=== PATIENT | male | born 1955 | race Caucasian/White ===

== ENCOUNTER 2016-05-23 17:27 | Day surgery (SDC) | payer OTHER ==
[~2016-05-23] VITALS: Ht 182.9 cm; Wt 85.0 kg
[~2016-05-23 17:27] MED LIST: ONDANSETRON HCL 4 MG/2 ML VIAL IV PUSH ONE; PROPOFOL 200 MG/20 ML AMP IV ONE
[2016-05-23 17:29] VITALS: BP 159/97; PULSE 102; RESP 15; TEMP 97.9; O2SAT 98
--- NOTE | 2016-05-23 19:16 | PD ---
HPI . cut fingers at about 2pm today Chief Complaint: Injury Time Seen by Provider: 19:16 Travel History International Travel<30 days: No Contact w/Intl Traveler<30days: No Traveled to known affect area: No History of Present Illness HPI 61-year-old male with hypertension, borderline diabetes, COPD (emphysema) here after sustaining an injury to his left hand middle and index finger. Patient was using a table saw and trying to turn it off when he accidentally touched the blade. At that point he amputated the distal tip of his index finger and cut into his middle finger, where there is a slight flap remaining. Patient went to [facility] in [place] was seen and told that he would need to come here to see a hand surgeon. He is up-to-date on his tetanus vaccine. He was not given any IV antibiotics in the emergency department, but is allergic to penicillin. Currently patient states that his fingers are still numb from the digital nerve block, however he does report pain 7 out of 10. He does have allergy to codeine, but tells me that he tolerates morphine well without any issues. He is accompanied by his . At the time of examination patient denies any other symptoms such as chest pain, shortness breath, abdominal pain, nausea, vomiting, weakness or fatigue. PFSH Past Medical History COPD: Yes Hypertension: Yes Social History Tobacco Use: Yes Allergies-Medications (Allergen,Severity, Reaction): Coded Allergies: Penicillin (Verified Allergy, Severe, Anaphylaxis, 05/23/16) Codeine (Verified Adverse Reaction, Severe, HEADACHE, 05/23/16) Review of Systems General / Constitutional: No: Fever Eyes: No: Visual changes HENT: No: Headaches Cardiovascular: No: Chest Pain or Discomfort Respiratory: No: Shortness of Breath Gastrointestinal: No: Abdominal Pain Genitourinary: No: Dysuria Musculoskeletal: No: Pain Skin: Positive Other (left index finger distal amputation and laceration), No Rash Neurologic: No: Weakness Psychiatric: No: Depression Endocrine: No: Polydipsia Hematologic/Lymphatic: No: Easy Bruising Physical Exam Narrative GENERAL: AAO x 3, no acute distress, Well-nourished, well-developed patient. SKIN: Warm and dry. No visible rashes or bruising. left index finger distal amputation, bone visible. middle finger, deep laceration with injury to nailbed. HEAD: Normocephalic and atraumatic. EYES: No scleral icterus. No injection or drainage. EOM intact, PERRLA ENT: No nasal drainage noted. Mucous membranes pink. Airway patent. NECK: Supple, trachea midline. No JVD. CARDIOVASCULAR: Regular rate and rhythm without murmurs, gallops, or rubs. RESPIRATORY: Breath sounds equal bilaterally. No accessory muscle use. No rhonchi or rales. GASTROINTESTINAL: Abdomen soft, non-tender, nondistended. EXTREMITIES: No cyanosis or edema of other extremities. Left hand without edema. + left distal index finger amputation, + left middle laceration extending through nailbed BACK: Nontender without obvious deformity. No CVA tenderness. PSYCH: AAO x 3, normal affect. Data Data Last Documented VS Vital Signs Date Time Temp Pulse Resp B/P Pulse Ox O2 Delivery O2 Flow Rate FiO2 05/23/16 21:20 92 15 140/78 92 05/23/16 19:17 Room Air 05/23/16 17:29 97.9 Orders Clindamycin Inj (Cleocin Inj) (05/23/16 19:30) Morphine Inj (Morphine Inj) (05/23/16 19:45) Ondansetron Inj (Zofran Inj) (05/23/16 19:45) Hand, Complete ([id number]) (05/23/16 19:51) Diet Npo (05/24/16 Breakfast) Complete Blood Count With Diff (05/23/16 20:43) Urinalysis - C+S If Indicated (05/23/16 20:43) Basic Metabolic Panel (Bmp) (05/23/16 20:43) Chest, Single Ap (05/23/16 ) Electrocardiogram (05/23/16 ) Coag Profile (05/23/16 20:43) Lidocaine 2% Inj (Xylocaine 2% Inj) (05/23/16 22:08) Labs Laboratory Tests Test 05/23/16 05/23/16 21:00 21:20 White Blood Count 7.9 TH/MM3 Red Blood Count 4.66 MIL/MM3 Hemoglobin 14.0 GM/DL Hematocrit 41.0 % Mean Corpuscular Volume 87.9 FL Mean Corpuscular Hemoglobin 30.2 PG Mean Corpuscular Hemoglobin 34.3 % Concent Red Cell Distribution Width 14.4 % Platelet Count 285 TH/MM3 Mean Platelet Volume 7.9 FL Neutrophils (%) (Auto) 67.7 % Lymphocytes (%) (Auto) 23.9 % Monocytes (%) (Auto) 6.6 % Eosinophils (%) (Auto) 1.2 % Basophils (%) (Auto) 0.6 % Neutrophils # (Auto) 5.3 TH/MM3 Lymphocytes # (Auto) 1.9 TH/MM3 Monocytes # (Auto) 0.5 TH/MM3 Eosinophils # (Auto) 0.1 TH/MM3 Basophils # (Auto) 0.1 TH/MM3 CBC Comment DIFF FINAL Differential Comment Prothrombin Time 10.8 SEC Prothromb Time International 1.0 RATIO Ratio Activated Partial 29.6 SEC Thromboplast Time Sodium Level 138 MEQ/L Potassium Level 4.3 MEQ/L Chloride Level 100 MEQ/L Carbon Dioxide Level 31.4 MEQ/L Anion Gap 7 MEQ/L Blood Urea Nitrogen 17 MG/DL Creatinine 0.66 MG/DL Estimat Glomerular Filtration 122 ML/MIN Rate Random Glucose 98 MG/DL Calcium Level 9.2 MG/DL Urine Color YELLOW Urine Turbidity CLEAR Urine pH 7.0 Urine Specific [place] 1.021 Urine Protein NEG mg/dL Urine Glucose (UA) NEG mg/dL Urine Ketones NEG mg/dL Urine Occult Blood NEG Urine Nitrite NEG Urine Bilirubin NEG Urine Urobilinogen LESS THAN 2.0 MG/DL Urine Leukocyte Esterase NEG Urine WBC LESS THAN 1 /hpf Urine Mucus FEW /lpf Microscopic Urinalysis Comment CULT NOT INDICATED MDM Medical Decision Making Medical Screen Exam Complete: Yes Emergency Medical Condition: Yes Medical Record Reviewed: Yes Differential Diagnosis finger amputation, finger fracture, Narrative Course 61-year-old male with hypertension, borderline diabetes, COPD (emphysema) here after sustaining an injury to his left hand middle and index finger. Patient was using a table saw and trying to turn it off when he accidentally touched the blade. At that point he amputated the distal tip of his index finger and cut into his middle finger, where there is a slight flap remaining. Patient went to [facility] in [place] was seen and told that he would need to come here to see a hand surgeon. He is up-to-date on his tetanus vaccine. He was not given any IV antibiotics in the emergency department, but is allergic to penicillin. Currently patient states that his fingers are still numb from the digital nerve block, however he does report pain 7 out of 10. He does have allergy to codeine, but tells me that he tolerates morphine well without any issues. He is accompanied by his . At the time of examination patient denies any other symptoms such as chest pain, shortness breath, abdominal pain, nausea, vomiting, weakness or fatigue. 1957: discussed with Dr. Cerda, she will try to come down to see the patient. Xrays ordered. 2039: spoke with Dr. Cerda there is another surgeon in the OR and she will try to get to him tonight, however, if that surgery is held over too long, she will perform early in the morning. However, if she is able to operate tonight, she will discharge him home. She recommended NPO for anticipation of surgery. Pre- op workup in progress. Patient taken to the OR from ED. He was transferred to Dr. Cerda's care. Patient verbalized understanding of instructions, questions were answered, and thanked me for their care. Diagnosis Primary Impression: Finger injury Qualified Code: S69.92XA - Finger injury, left, initial encounter Admitting Information Admitting Physician Requests: Admit Condition: Stable Laura Lucas May 23, 2016 19:16
[2016-05-23] MEDS ORDERED: CLINDAMYCIN INJ 900 MG in SODIUM CHLORIDE 0.9% INJ 100 ML IV ONE (19:30)
[2016-05-23 19:41] VITALS: BP 184/89; PULSE 90; RESP 15; O2SAT 98
[2016-05-23] MEDS ORDERED: ONDANSETRON HCL 4 MG/2 ML VIAL IV PUSH ONE (19:45)
[2016-05-23] MEDS ORDERED: MORPHINE SULFATE 4 MG/ML INJ IV PUSH ONE (19:45)
--- NOTE | 2016-05-23 20:43 | RADRPT ---
EXAM DATE/TIME: 05/23/2016 20:18 [facility] COMPARISON: No previous studies available for comparison. INDICATIONS : Left hand pain, cut fingers with table saw. MEDICAL HISTORY : None. SURGICAL HISTORY : None. ENCOUNTER: Initial ACUITY: 1 day PAIN SCORE: 4/10 LOCATION: Left hand, second and third digit FINDINGS: Focal soft tissue amputation seen distally of the pointer and long fingers. There is minimally displa cristiane fracturing of the tip of the pointer finger distal phalanx. A few radiopaque fragments are seen i n the remaining soft tissues distally of the long finger which is probably debris although tiny dista l phalangeal fracture fragments are possible. No large fracture seen. CONCLUSION: Soft tissue injuries distally of the tips of the pointer and long fingers with tiny fracture fragment s of the distal phalanges. Ruddy Frost MD on May 23, 2016 at 20:41 Board Certified Radiologist. This report was verified electronically.
--- NOTE | 2016-05-23 21:09 | RADRPT ---
EXAM DATE/TIME: 05/23/2016 21:01 [facility] COMPARISON: No previous studies available for comparison. INDICATIONS : Trauma. MEDICAL HISTORY : None. SURGICAL HISTORY : None. ENCOUNTER: Initial ACUITY: 1 day PAIN SCORE: 0/10 LOCATION: Bilateral chest FINDINGS: A single view of the chest demonstrates the lungs to be symmetrically aerated without evidence of mas s, infiltrate or effusion. The cardiomediastinal contours are unremarkable. No acute bony abnormalit y demonstrated. Apparent partial shaving versus chronic resorption of the distal end of the right cla vicle.. CONCLUSION: No evidence of acute cardiopulmonary disease. Ruddy Frost MD on May 23, 2016 at 21:07 Board Certified Radiologist. This report was verified electronically.
[2016-05-23 21:17] LABS: AUTOMATED NEUTROPHIL # 5.3 TH/MM3 (1.8-7.7); BASOPHIL # 0.1 TH/MM3 (0-0.2); BASOPHIL % 0.6 % (0.0-2.0); EOSINOPHIL # 0.1 TH/MM3 (0-0.4); EOSINOPHIL % 1.2 % (0.0-4.0); HEMO FLAGS DIFF FINAL; LYMPH % 23.9 % (9.0-44.0); LYMPHOCYTE # 1.9 TH/MM3 (1.0-4.8); MEAN CELL VOLUME 87.9 FL (80.0-100.0); MEAN CORPUSCULAR HEMOGLOBIN 30.2 PG (27.0-34.0); MEAN CORPUSCULAR HGB CONC 34.3 % (32.0-36.0); MONO % 6.6 % (0.0-8.0); NEUT % 67.7 % (16.0-70.0); PLATELET COUNT 285 TH/MM3 (150-450); RED BLOOD COUNT 4.66 MIL/MM3 (4.50-5.90); RED CELL DISTRIBUTION WIDTH 14.4 % (11.6-17.2); WHITE BLOOD COUNT 7.9 TH/MM3 (4.0-11.0)
[2016-05-23 21:20] VITALS: BP 140/78; PULSE 92; RESP 15; O2SAT 92
[2016-05-23 21:22] LABS: APTT (PATIENT) 29.6 SEC (24.3-30.1); PROTHROMBIN TIME - PATIENT 10.8 SEC (9.8-11.6)
[2016-05-23 21:24] LABS: BICARBONATE 31.4 MEQ/L (21.0-32.0); POTASSIUM 4.3 MEQ/L (3.5-5.1)
[2016-05-23 21:41] LABS: BLOOD, URINE NEG (NEG); COMMENT (UR) CULT NOT INDICATED; CULTURE IF INDICATED CULT NOT INDICATED; GLUCOSE,URINE NEG (NEG); KETONE, URINE NEG (NEG); MUCUS URINE FEW /lpf (OCC); NITRITE,URINE NEG (NEG); URINE COLOR YELLOW (YELLW/STRAW)
[2016-05-23] MEDS ORDERED: LIDOCAINE HCL 2% 50 ML VIAL ONE (22:08)
[2016-05-24] MEDS ORDERED: fentaNYL CITRATE 250 MCG/5 ML AMP ONE (00:05)
[2016-05-24] MEDS ORDERED: DO NOT ADM ANY ANTICOAGULANT DRUGS XX PRN (00:30)
[2016-05-24] MEDS ORDERED: *morphine SULFATE 8 MG/ML PERIprocedure ONLY ONE ×2 (00:33→00:50)
[2016-05-24 01:15] VITALS: BP 164/95; PULSE 92; RESP 18; TEMP 98.1; O2SAT 92
[2016-05-24] MEDS ORDERED: BACT800T5 PO (01:35)
[2016-05-24] MEDS ORDERED: NORC5TAB PO (01:35)
--- NOTE | 2016-05-24 07:34 | EKG ---
Date Performed: 05/23/2016 Time Performed: 22:28:13 PTAGE: 61 years EKG: Sinus rhythm LEFT AXIS DEVIATION LEFT BUNDLE BRANCH BLOCK ABNORMAL ECG NO PREVIOUS TRACING DOCTOR: Jose Light Interpretating Date/Time 05/24/2016 07:33:29
--- NOTE | 2016-05-25 06:03 | MB ---
cc: NIGHAT CERDA MD DATE OF CONSULTATION: 05/23/2016 REASON FOR CONSULTATION: Table saw injury left hand. HISTORY OF PRESENT ILLNESS Monty Baez is a right hand dominant 61 year-old male with past medical history significant for hypertension, COPD, who was using a table saw today to make a canoe and states at the end he was going to turn off the saw when he lacerated his index and middle fingers on the left hand. He denies prior injury to the left hand. He lives in [place] and went to [facility] but there was no hand surgeon available, thus he presented to [facility]. PAST MEDICAL HISTORY: Significant for COPD, hypertension. SOCIAL HISTORY Reports tobacco use. ALLERGIES Penicillin Codeine PHYSICAL EXAMINATION Exam of the left hand shows an oblique partial amputation from radial to ulnar nerve of the left index finger with exposed distal phalanx. There is also partial amputation of the left middle finger through the distal phalanx with nail bed laceration and a small flap of tissue from ulnar to radial with questionable capillary refill. Function is intact and FDP. The patient does have sensation proximal to the amputation but minimal sensation of the tip. Again there is capillary refill proximal to the amputation. IMAGING STUDIES X-rays reviewed show mostly intact distal phalanx but there is a small fracture of both the index and middle finger distal phalanx. ASSESSMENT/PLAN A 61 year-old right-hand dominant male, after table saw injury to the left hand with partial amputation of the left index finger with exposed bone and injury to the nail bed of the left middle finger. Treatment options were discussed with the patient including conservative dressing changes versus surgical intervention. The patient did drive from [place] for surgical intervention and requested attempt at surgical repair of any injured structures. Risks were explained but not limited to wound complications, infection, persistent pain, persistent paresthesias, necrosis of the tips of the fingers, need for additional surgeries and he elects to proceed. The patient does live in [place] and I instructed the patient that I am happy to see him back for follow up but he states he will likely follow up with a hand surgeon in [place]. Nighat Cerda MD /[facility] /11:16 PM /5:55 AM MTDD
--- NOTE | 2016-05-25 22:23 | MP ---
cc: NIGHAT CERDA DATE OF SURGERY 05/23/2016 PREOPERATIVE DIAGNOSIS Table saw injury left hand including index and middle finger distal phalanx and nail bed. POSTOPERATIVE DIAGNOSIS Table saw injury left hand including index and middle finger distal phalanx and nail bed. PROCEDURE 1. Irrigation debridement open fracture of left index finger distal phalanx including skin and subcutaneous tissue, muscle and bone. 2. Irrigation debridement skin, subcutaneous tissue, muscle and bone left middle finger distal phalanx. 3. Nail bed repair left middle finger. 4. Complex repair partial amputation left index finger. SURGEON Dr. Nighat Cerda ANESTHESIA General and local. TOURNIQUET TIME None. INDICATIONS FOR PROCEDURE Monty Baez is a 61-year-old right hand dominant male who sustained a table saw injury to his left hand earlier today. He presented to [facility] but there was no hand surgeon monogram technician, so he drove to [place] for evaluation. He requested surgical intervention. DESCRIPTION OF PROCEDURE The patient was identified in the preoperative holding area and the correct extremity was marked. The patient was taken to the operating room where anesthesia was induced. The left upper extremity was prepped and draped in normal sterile fashion. Three liters of antibiotic saline were used to irrigate the index and middle fingers and exposed the distal phalanx. Attention was first turned to the middle finger. There was a small flap of skin which did have capillary refill but was approximately 3-second capillary refill to the tip. The decision was made to repair this flap as well as repair the nail bed with 5-0 chromic. The proximal aspect of the nail was intact so this was left so that the new nail may grow in. The patient may have significant nail deformity due to this injury. Attention was then turned to the index finger. There was exposed distal phalanx so this was rongeured back to provide closure of the tissue. A complex repair of the amputation site was performed with 4-0 chromic to improve the contour and appearance of the finger and allow the patient to pinch earlier than leaving granulation tissue over the radial border of the index finger. The fingers were then dressed with Xeroform, 4x4s and Dottie. Digital blocks were performed with 2% lidocaine without epinephrine, approximately 15 mL. The patient was awoken from anesthesia without any complications. He was given a prescription for antibiotic and pain medication. Again I am happy to see the patient back in 1-2 weeks for followup, but he states that he will likely follow up with a surgeon in [place]. MD AMARI Oliveros/[facility] /11:20 PM /10:15 PM [place]
== END 2016-05-24 01:45 | disposition home or self-care (01) ==
LOC: NEPC 17:27 → HSDC 22:51
PROVIDERS: ATTEND Orthopaedic Surgery
DX: S68.621A Partial traumatic transphalangeal amputation of left index finger, initial encounter (principal); S68.623A Partial traumatic transphalangeal amputation of left middle finger, initial encounter; S61.313A Laceration without foreign body of left middle finger with damage to nail, initial encounter; W31.2XXA Contact with powered woodworking and forming machines, initial encounter; Y93.H3 Activity, building and construction; J44.9 Chronic obstructive pulmonary disease, unspecified; I10 Essential (primary) hypertension; F17.210 Nicotine dependence, cigarettes, uncomplicated; R94.31 Abnormal electrocardiogram [ECG] [EKG]; M79.642 Pain in left hand
CPT/HCPCS: 00400; 11043; 11760; 13131; 71010; 73130; 80048; 81001; 85025; 85610; 85730; 93005; J2270; J2405; J3010; 96374; 96375